=== PATIENT | female | born 1990 | race Caucasian/White ===

== ENCOUNTER 2017-02-18 14:15 | Emergency (ER) | payer OTHER ==
[2017-02-18] MEDS ORDERED: TRINESSA LO TA1 EACH (14:26)
[2017-02-18] MEDS ORDERED: NORCO 325 MG-51 TAB PO (15:37)
[2017-02-18 15:56] VITALS: BP 138/86
== END 2017-02-18 15:58 | disposition home or self-care (01) ==
LOC: ED 14:15
DX: S80.02XA Contusion of left knee, initial encounter (principal); W18.30XA Fall on same level, unspecified, initial encounter

== ENCOUNTER → 2017-06-28 | Outpatient (CLI) | payer SELFPAY ==
[~2017-06-28] MED LIST: NORCO 325 MG-51 TAB PO; TRINESSA LO TA1 EACH
== END ==
LOC: RAD 10:53
DX: M53.3 Sacrococcygeal disorders, not elsewhere classified (principal); Z87.828 Personal history of other (healed) physical injury and trauma

== ENCOUNTER → 2017-09-19 | Outpatient (CLI) | payer OTHER | LOC: RAD 08:16 | DX: R05 Cough (principal) ==